=== PATIENT | male | born 1990 | race Caucasian/White ===

== ENCOUNTER 2016-10-24 02:09 | Emergency (ER) | payer SELFPAY ==
[~2016-10-24] VITALS: Ht 180.3 cm; Wt 75.0 kg
[2016-10-24] MEDS ORDERED: ZOFRAN ODT8 M1 PO (06:39)
[2016-10-24 07:34] VITALS: BP 89/54
== END 2016-10-24 08:09 | disposition home or self-care (01) ==
LOC: ED 02:09
DX: R10.11 Right upper quadrant pain (principal); R10.31 Right lower quadrant pain; R10.32 Left lower quadrant pain; R11.2 Nausea with vomiting, unspecified; R68.89 Other general symptoms and signs; D72.829 Elevated white blood cell count, unspecified
CPT/HCPCS: J1885; J2405; J2550; J7030; Q9967

== ENCOUNTER → 2016-10-25 | Outpatient (CLI) | payer SELFPAY ==
[~2016-10-25] MED LIST: ZOFRAN ODT8 M1 PO
== END ==
LOC: LAB 08:25
DX: R74.8 Abnormal levels of other serum enzymes (principal)